=== PATIENT | female | born 2000 | race Two or more races ===

== ENCOUNTER 2024-09-29 12:41 | Emergency (ER) | payer OTHER, SELFPAY ==
[2024-09-29 13:31] VITALS: BP 110/73; PULSE 76; RESP 16; TEMP 36.9; O2SAT 100; BMI 23.4
--- NOTE | 2024-09-29 13:45 | XR_ITS ---
Examination: CT brain head without contrast. 2-D sagittal coronal reconstructions Date and time of exam:September 29, 2024 at 1432 hrs. Indications: Head injury 3 days ago, concussion, head pain altered mental status CTDI: vol (mGy):48.6 DLP: (mGycm):918 Technique: Multiple CT axial sections of the brain have been obtained, 5 mm slice thickness. Contrast has not been administered. 2-D sagittal, coronal reconstructions have been obtained Low dose protocols were performed. One or more of the following dose reduction techniques were used; automated exposure control, adjustment of the mA and/or KV according to patient size, use of iterative reconstruction technique. Findings: No significant ventricular enlargement. Intra-axial or extra-axial hemorrhage density is not seen. No mass effect or midline shift Basal cisterns are not remarkable. Fourth ventricle is midline. Cranial vault intact. Impression: Negative for acute hemorrhage, mass effect or midline shift
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
[2024-09-29 15:06] VITALS: BP 107/70; PULSE 91; RESP 19; TEMP 37.1; O2SAT 98
[2024-09-29] MEDS: ACETAMINOPHEN 325 MG TABLET 650 MG PO (15:23)
== END 2024-09-29 15:26 | disposition home or self-care (01) ==
PROVIDERS: Emergency Provider Emergency Medicine; PCP Family Medicine
DX: S09.90XA Unspecified injury of head, initial encounter (principal); W19.XXXA Unspecified fall, initial encounter
CPT/HCPCS: 70450; 99284; A9270

== ENCOUNTER → 2024-11-18 | Outpatient (CLI) | payer BC, SELFPAY ==
[2024-11-18 17:46] LABS: Collection Type, Urine Clean Catch
[2024-11-18 18:43] LABS: Bacteria,Urine 1+; Bilirubin,Urine Negative (Negative); Blood,Urine 2+ (Negative); Color,Urine Yellow (Lt Yel-Yel); Glucose, Urine Negative (Negative); Ketones,Urine 1+ (Negative); Leukocyte Esterase,Urine Negative (Negative); Nitrite,Urine Positive (Negative); Protein,Urine Negative (Neg - Trace); RBC,Urine 24 /hpf (0-3); Specific Gravity,Urine 1.025 (1.001-1.035); Squamous Epithelial Cell,Urine 5 /hpf (0-5); Urobilinogen,Urine Negative mg/dL (0.0-1.0); WBC,Urine 4 /hpf (0-5)
[2024-11-18 18:48] LABS: Clarity,Urine Hazy (Clear/Hazy)
== END | disposition home or self-care (01) ==
LOC: SLDO 17:33
PROVIDERS: PCP Registered Nurse; Referring Provider Registered Nurse; Visit Provider Registered Nurse
DX: R35.0 Frequency of micturition (principal)
CPT/HCPCS: 81001; 87077; 87086; 87186

== ENCOUNTER 2025-03-07 17:53 | Emergency (ER) | payer BC, OTHER, SELFPAY ==
[2025-03-07 17:58] VITALS: BP 135/92; PULSE 96; RESP 18; TEMP 36.8; O2SAT 96; BMI 24.7
[2025-03-07 18:12] VITALS: PULSE 110; RESP 18; O2SAT 98
--- NOTE | 2025-03-07 18:20 | EKG_ITS ---
[facility] Test Date: 2025-03-07 Pat Name: GLADYS FULLER Department: Room: - Gender: Female Travel Registered Nurse Oncology: : 2000 Requested By: Kai Patricio Order Number: [id number] Reading MD: Kai Patricio Measurements Intervals [place] Rate: 88 P: 27 SC: 142 QRS: -7 QRSD: 77 T: 8 QT: 362 QTc: 438 Interpretive Statements SINUS RHYTHM No previous ECG available for comparison /store/[email or web address]/[id number].pdf
--- NOTE | 2025-03-07 18:20 | XR_ITS ---
Examination: AP chest single view TECHNIQUE: AP portable upright chest single view Exam date time: March 07, 2025 1916 hours INDICATIONS: Chest pain shortness of breath today FINDINGS: Normal heart size. Lungs are clear. The osseous structures are intact. IMPRESSION: No active disease
--- NOTE | 2025-03-07 18:21 | EDNOTE_ITS ---
ED Chest Pain RME/HPI General Chief Complaint: Chest Pain Stated Complaint: CHEST PAIN Time Seen by Provider: 03/07/25 17:56 Arrival date/time: 03/07/25 17:53 RME / HPI RME / HPI narrative: 24-year-old female patient with significant history of anxiety, came in for evaluation regarding left-sided chest pain. Onset of symptoms since 4-hour prior to ER visit as sudden onset of left-sided chest pain described as sharp pain, associated with numbness to bilateral upper extremity and legs. Patient denies any cough. Denies any diarrhea. Related Data Previous Rx's ?Medication ?Instructions ?Recorded ibuprofen 400 mg tablet 400 mg PO Q8H #30 tabs 09/27 docusate sodium 100 mg capsule 100 mg PO BID #40 caps 09/28/18 (Colace) hydrocodone 5 mg-acetaminophen 325 1 tab PO QID PRN pa in #14 tabs 09/28/18 mg tablet ([place]) acetaminophen 325 mg capsule 975 mg (3 x 325 mg) PO Q6 H PRN 08/31/20 pain #30 caps cyclobenzaprine 5 mg tablet 10 mg (2 x 5 mg) PO TID [place] N muscle 08/31/20 spasm #15 tabs naproxen 500 mg tablet (Naprosyn) 500 mg PO BID PRN pa in #20 tabs 03/07/21 meloxicam 7.5 mg tablet 7.5 mg PO QDAY #10 tabs 10/14 03/03 cyclobenzaprine 5 mg tablet 5 mg PO TID PRN muscle spa sm #30 07/22/22 tabs hydrocodone 5 mg-acetaminophen 325 1 tab PO BID PRN pa in #8 tabs 07/22/22 mg tablet ibuprofen 600 mg tablet 600 mg PO Q8H PRN pain #20 t abs 07/22/22 promethazine 6.25 mg-codeine 10 5 ml PO Q6H PRN cough #118 mL 09/10/22 mg/5 mL syrup naproxen 500 mg tablet 500 mg PO BID PRN pain #30 t abs 09/05/23 ondansetron 4 mg disintegrating 4 mg PO Q8H PRN nausea and 09/05/23 tablet vomiting #30 tabs peg 3350-electrolytes 236 240 ml PO Q10M #4,000 mL 12/05 gram-22.74 gram-6.74 gram-5.86 gram solution (GaviLyte-G) Allergies Allergy/AdvReac Type Severity Reaction Status Date / Time No Known Allergies Allergy Verified 09/29/24 12:42 Review of Systems Review of Systems Narrative Review of Systems: Review of system reviewed and within normal limits except mentioned in HPI ED Exam Narrative Physical exam: VITAL SIGNS: Reviewed. GENERAL APPEARANCE: Alert and interactive, follows commands, no acute distress, HEAD AND FACE: Non-traumatic. ENT: PERRL, pink conjunctivitis, eyelid no trauma, Mucous membrane moist. NECK: Supple, nontender, no nuchal rigidity. CHEST: No tenderness, no crepitus, no paradoxical movement, no retractions. LUNGS: Clear, well ventilated, symmetric, no rales, no wheezing, no ronchi, no stridor, good breath sounds bilaterally. HEART: Regular rate, regular rhythm, no murmur, no gallops. ABDOMEN: Soft, positive bowel sounds, nondistended, no guarding, nontender, no rebound, no masses, RECTAL: Deferred. GENITAL: Deferred. NEUROLOGICAL: Gross motor function intact sensory function intact, Appropriate for age. MUSCULOSKELETAL: low back nontender, full range of motion. EXTREMITIES: Nontender, full range of motion. SKIN: Color pink, dry, no rash, no lacerations, no abrasions, no contusions. LYMPHATICS: Deferred. Course Quality Measures none Orders Category Date Time Status EKG (ED ONLY) *Do not use* NOW Care 03/07/25 18:21 Completed EKG (ED Only) Stat Exams 03/07/25 18:20 Draft XR chest 1V Stat Exams 03/07/25 18:20 Completed B-Type Natriuretic Peptide Stat Lab 03/07/25 18:54 Completed CBC Stat Lab 03/07/25 18:54 Completed Comprehensive Metabolic Panel Stat Lab 03/07/25 18:54 Completed HCG Qualitative,Urine Stat Lab 03/07/25 19:22 Completed Partial Thromboplastin Time Stat Lab 03/07/25 18:54 Completed Troponin I Stat Lab 03/07/25 18:54 Completed Urinalysis, C/S if Indicated Stat Lab 03/07/25 19:22 Completed Ibuprofen Tab [Motrin Tab] Med 03/07/25 20:35 Discontinued 800 mg PO X1 ONE Vital Signs Vital signs: Vital Signs Temperature 98.2 F 03/07/25 17:58 Pulse Rate 96 03/07/25 17:58 Respiratory Rate 18 03/07/25 17:58 Blood Pressure 135/92 H 03/07/25 17:58 Pulse Oximetry (%) 96 03/07/25 17:58 Oxygen Delivery Method Room Air 03/07/25 17:58 Chest Pain MDM Narrative MDM Narrative:: 24-year-old female patient with significant history of anxiety, came in for evaluation regarding left-sided chest pain. Onset of symptoms since 4-hour prior to ER visit as sudden onset of left-sided chest pain described as sharp pain, associated with numbness to bilateral upper extremity and legs. Patient denies any cough. Denies any diarrhea. Patient's cardiac workup UNREMARKABLE. Chest x-ray came back unremarkable EKG also came back unremarkable. Prior to discharge patient having any chest pain. Patient is probably having anxiety like symptoms Patient appears nontoxic and hemodynamically stable. Patient discharged home and instructed to follow-up with primary care provider in 24 to 48 hours. Instructed to return to the emergency department immediately if worsening of symptoms Patient data External records reviewed:: None Clinical information provided by:: patient Social determinants that could affect healthcare access:: none Patient has the following chronic illnesses:: History of anxiety How is presenting disease/condition affected by chronic disease/condition?: exacerbated by Evaluation data The following diagnostics were reviewed and interpreted by me:: lab results, radiology exam(s) and EKG tracing(s) Lab and/or radiology exams considered but not ordered:: None Interpretation Summary: EKG as interpreted by me normal sinus rhythm, ventricular rate of 88 bpm, no ST segment elevation depression. Noted. Laboratory workup including troponin came back normal. Prior to discharge patient is not having any chest pain. Medications / Prescriptions Medications or Prescriptions considered but not ordered:: None Medication administrations:: Medication Administration History Discontinued Medications Ibuprofen (Ibuprofen Tab 400 Mg Tablet) 800 mg PO X1 ONE Stop: 03/07/25 20:36 Motrin t Consultations Consultation(s) initiated? (list below): No Diagnosis Chest Pain Differential Diagnosis: pneumothorax, stable angina and chest pain Most likely diagnosis given after review of the tests above:: Noncardiac chest pain, anxiety Admission Indicated Admission indicated?: not indicated Admission Request Was there a request for admission?: No Disposition Plan Disposition Plan: Discharge Discharge Attestation Discharge Attestation: The patient and all family members were given an opportunity to ask questions and understood the discharge instructions. Discharge instructions specifically effects, indications for sooner follow up or return to the emergency department, and the expected course of current diagnosis. Patient condition: Stable Discharge Plan Plan Patient Disposition: HOME (Self Care) Disposition Comment: stable Prescriptions/Referrals Prescriptions/Med Rec: No Action ibuprofen 400 mg tablet 400 mg PO Q8H Qty: 30 0RF hydrocodone-acetaminophen [[place]] 5-325 mg tablet 1 tab PO QID MDD 4 PRN (Reason: pain) Qty: 14 0RF docusate sodium [Colace] 100 mg capsule 100 mg PO BID Qty: 40 0RF cyclobenzaprine 5 mg tablet 10 mg PO TID PRN (Reason: muscle spasm) Qty: 15 0RF acetaminophen 325 mg capsule 975 mg PO Q6H PRN (Reason: pain) Qty: 30 0RF naproxen [Naprosyn] 500 mg tablet 500 mg PO BID PRN (Reason: pain) Qty: 20 0RF meloxicam 7.5 mg tablet 7.5 mg PO QDAY Qty: 10 0RF naproxen 500 mg tablet 500 mg PO BID PRN (Reason: pain) Qty: 30 0RF ondansetron 4 mg tablet,disintegrating 4 mg PO Q8H PRN (Reason: nausea and vomiting) Qty: 30 0RF peg 3350-electrolytes [GaviLyte-G] 236-22.74-6.74 -5.86 gram recon soln 240 ml PO Q10M Qty: 4000 0RF Rx Instructions: until fecal effluent is clear hydrocodone-acetaminophen 5-325 mg tablet 1 tab PO BID MDD 10 PRN (Reason: pain) Qty: 8 0RF cyclobenzaprine 5 mg tablet 5 mg PO TID PRN (Reason: muscle spasm) Qty: 30 0RF ibuprofen 600 mg tablet 600 mg PO Q8H PRN (Reason: pain) Qty: 20 0RF promethazine-codeine 6.25-10 mg/5 mL syrup 5 ml PO Q6H PRN (Reason: cough) Qty: 118 0RF Referrals: Netta Hargrove NP [Primary Care Provider] - In 1 week Problem List Clinical Impression: Chest pain, non-cardiac, Anxiety Patient/Caregiver Discharge Instructions Discharge Activity: activity as tolerated Education Materials: ED Chest Pain, Noncardiac Additional Instructions: Thank you for the opportunity for serving you today. You are stable for discharged . You are advised to: Follow-up with your PCP in 1 to 2 days Return to ED for worsening of symptoms Print Language: Montserratian Stand Alone Forms: [facility] Award Info., Patient Portal Info Letter PA/STEAM FITTER SUPERVISOR MAINTENANCE Supervising Physician PA/STEAM [employer]TER SUPER[employer]OR MAINTENANCE Supervising Physician: MD Rohan
[2025-03-07 18:46] VITALS: BP 115/68; PULSE 84; RESP 18; TEMP 36.7; O2SAT 99
[2025-03-07 19:05] LABS: Basophils % (Auto) 1 % (0-2.5); Eosinophils # (Auto) 0.1 Thou/mm3 (0.0-0.5); Eosinophils % (Auto) 1 % (0-10); Hematocrit 39.9 % (36.0-46.0); Hemoglobin 14.2 g/dL (12.0-16.0); Immature Granulocytes % (Auto) 0 % (0-0); Immature Granulocytes Auto 0.03 Thou/mm3 (0.00-0.00); Lymphocytes # (Auto) 2.2 Thou/mm3 (1.0-4.8); Lymphocytes % (Auto) 26 % (10-50); Mean Corpuscular HGB Conc 35.6 g/dl (31.0-37.0); Mean Corpuscular Hemoglobin 30.5 pg (25.0-35.0); Mean Corpuscular Volume 86 fL (80-100); Monocytes # (Auto) 0.7 Thou/mm3 (0.0-0.8); Monocytes % (Auto) 8 % (0-12); Neutrophils # (Auto) 5.5 Thou/mm3 (1.8-7.7); Neutrophils % (Auto) 65 % (37-80); Nucleated Red Blood Cell % 0 /100 WBC (0); Platelet Count 299 Thou/mm3 (140-440); RDW Standard Deviation 38.6 fL (36.4-46.3); Red Blood Count 4.65 Miln/mm3 (4.00-5.20); White Blood Count 8.5 Thou/mm3 (3.6-11.0)
[2025-03-07 19:19] LABS: Partial Thromboplastin Time 27.6 Seconds (22.0-36.0)
[2025-03-07 19:26] LABS: B-Type Natriuretic Peptide < 20 pg/mL (0-100)
[2025-03-07 19:28] LABS: Alanine Aminotransferase 14 U/L (10-49); Albumin, Serum 4.5 gm/dL (3.5-5.0); Albumin/Globulin Ratio 1.7 (1.2-2.2); Alkaline Phosphatase 73 U/L (46-116); Anion Gap 9 (7-16); Aspartate Amino Transferase 17 U/L (0-34); BUN/Creatinine Ratio 14 Ratio (12-20); Bilirubin,Total 0.7 mg/dL (0.3-1.2); Blood Urea Nitrogen 10 mg/dL (9-23); Calcium 9.4 mg/dL (8.3-10.6); Calcium (Corrected) 9.4 mg/dL (8.5-10.1); Carbon Dioxide 24.3 mMol/L (20.0-31.0); Chloride 103 mMol/L (98-107); Creatinine (Component) 0.7 mg/dL (0.6-1.3); Estimated Creatinine Clearance 108.6 mL/min (>60); Globulin 2.6 gm/dL (2.3-3.5); Glucose 96 mg/dL (74-106); Osmolality,Calculated 270 (275-295); Potassium 3.4 mMol/L (3.4-5.1); Sodium 136 mMol/L (136-145); Total Protein 7.1 gm/dL (5.7-8.2); Troponin I < 0.002 ng/mL (0.0-0.045); eGFR > 60 See Note
[2025-03-07 19:36] LABS: Collection Type, Urine Clean Catch; WBC,Urine 0 /hpf (0-5)
[2025-03-07 19:43] LABS: Bacteria,Urine Rare; Bilirubin,Urine Negative (Negative); Blood,Urine 2+ (Negative); Clarity,Urine Clear (Clear/Hazy); Color,Urine Colorless (Lt Yel-Yel); Culture Indicated,Urine Not Indicated; Glucose, Urine Negative (Negative); Ketones,Urine Negative (Negative); Leukocyte Esterase,Urine Negative (Negative); Nitrite,Urine Negative (Negative); PH,Urine 6.5 (5.0-7.0); Protein,Urine Negative (Neg - Trace); RBC,Urine 5 /hpf (0-3); Specific Gravity,Urine 1.008 (1.001-1.035); Squamous Epithelial Cell,Urine 1 /hpf (0-5); Urobilinogen,Urine Negative mg/dL (0.0-1.0)
[2025-03-07 19:47] LABS: HCG Qualitative,Urine Negative
[2025-03-07] MEDS: IBUPROFEN TAB 400 MG TABLET 800 MG PO (20:45)
[2025-03-07 20:49] VITALS: BP 101/72; PULSE 76; RESP 14; TEMP 36.8; O2SAT 98
== END 2025-03-07 21:03 | disposition home or self-care (01) ==
PROVIDERS: Nurse Practitioner Family; Emergency Provider Emergency Medicine; PCP Registered Nurse
DX: R07.89 Other chest pain (principal); F41.9 Anxiety disorder, unspecified
CPT/HCPCS: 36415; 71045; 80053; 81001; 81025; 83880; 84484; 85025; 85730; 93005; 99283; A9270